=== PATIENT | female | born 1990 | race Caucasian/White ===

== ENCOUNTER 2018-10-05 08:25 | Inpatient (IN) | payer OTHER ==
--- NOTE | 2018-10-05 10:03 | HP ---
COWS - Scale Resting Pulse: 1= [place] 81-100 Sweatin= Chills/Flushing Restless Observation: 1= Difficult to Sit Still Pupil Size: 1= Pupils >than Normal Bone or Joint Aches: 4=Acute Joint/Muscle Pain Runny Nose/ Eye Tearin= Runny Nose/Eyes GI Upset > 30mins: 2= Nausea/Diarrhea Tremor Observation: 2= Slight Tremor Visible Yawning Observation: 0= None Anxiety or Irritability: 2=Irritable/Anxious Goose Flesh Skin: 0=Smooth Skin COWS Score: 16 CIWA Score - Admission Criteria OASAS Guidelines: Admission for Medically Managed Detox: Requires at least one of the followin. CIWA greater than 12 2. Seizures within the past 24 hours 3. Delirium tremens within the past 24 hours 4. Hallucinations within the past 24 hours 5. Acute intervention needed for co occurring medical disorder 6. Acute intervention needed for co occurring psychiatric disorder 7. Severe withdrawal that cannot be handled at a lower level of care (continued vomiting, continued diarrhea, abnormal vital signs) requiring intravenous medication and/or fluids 8. Admission ROS [facility] Allergies/Adverse Reactions: Allergies Allergy/AdvReac Type Severity Reaction Status Date / Time No Known Allergies Allergy Verified 10/05/18 09:55 History of Present Illness: patient here requesting detox from heroin use , reports 2 gr/day IVDU first age of use 6 mo ago , prior to which she was using oxycodone 10 pills x 30 mg /day x 6 years , had rx initially for Lyme dz / DJD x 2 years then started illicit use . IVDU in [place] [facility] , needles from the exchange, denies sharing , rarely re-using , denies abscess, denies OD . Denies si / hi , never at this facility , prior detox July 2018 [facility] , rehab benzo : 5 xanax /day since age 17 , reports anxiety if not using, denies w/d seizures , blackouts . etoh use : 2 x/week 3-4 beers. tobacco : 1 ppd since age 17 cannabis : 1 blunt 2x/month , first age of use 17 other illicits : MDMA . upt neg lmp June 21 ages 9 son w/ maternal GM & 3 y,o dtr w/ bio father SHX : homeless , unemployed PMHx : depression , anxiety , djd , Lyme dz st II PSHx ; denies - Ebola screening Have you traveled outside of the country in the last 21 days: No Have you had contact with anyone from an Ebola affected area: No Have you been sick,other than usual withdrawal symptoms: No Do you have a fever: No - Review of Systems Constitutional: See HPI EENT: reports: See HPI Respiratory: reports: No Symptoms reported Cardiac: reports: No Symptoms Reported GI: reports: See HPI : reports: No Symptoms Reported Musculoskeletal: reports: See HPI Integumentary: reports: Other (track doty) Neuro: reports: No Symptoms reported Endocrine: reports: No Symptoms Reported Psychiatric: reports: Orientated x3, Agitated, Anxious Patient History - Smoking Cessation Smoking history: Current every day smoker Have you smoked in the past 12 months: Yes Aproximately how many cigarettes per day: 20 Hx Chewing Tobacco Use: No Initiated information on smoking cessation: No - Substances Abused Heroin Route: Injection Frequency: Daily Amount used: 2 gms. Age of first use: 27 Date of Last Use: 10/03/18 Xanax or Klonopin Route: Oral Frequency: Daily Amount used: 4 mg./3 mg. Age of first use: 17 Date of Last Use: 10/04/18 Ecstacy Route: Injection Frequency: 1-2 times per week Amount used: $40 Age of first use: 20 Date of Last Use: 10/03/18 Family Disease History - Family Disease History Family History: Denies Admission Physical Exam BHS - Vital Signs Vital Signs: Vital Signs - 24 hr 10/05/18 09:01 Temperature 97.1 F L Pulse Rate 83 Respiratory 17 Rate Blood Pressure 94/61 - Physical General Appearance: Yes: Moderate Distress, Irritable, Anxious HEENTM: Yes: EOMI, Hearing grossly Normal, Normocephalic, Normal Voice, Nasal Congestion, Rhinorrhea Respiratory: Yes: Chest Non-Tender, Lungs Clear, Normal Breath Sounds Neck: Yes: No masses,lesions,Nodules, Trachea in good position Breast: Yes: Breast Exam Deferred Cardiology: Yes: Regular Rhythm, Regular Rate, S1, S2 Abdominal: Yes: Normal Bowel Sounds, Soft Genitourinary: Yes: Within Normal Limits Back: Yes: Normal Inspection Musculoskeletal: Yes: Gait Steady Extremities: Yes: Normal Capillary Refill, Tremors Neurological: Yes: Motor Strength 5/5 Integumentary: Yes: Track Doty ([place] antecubital) - Diagnostic (1) Opiate dependence Current Visit: Yes Status: Acute Qualifiers: Substance use status: in withdrawal Qualified Code(s): F11.23 - Opioid dependence with withdrawal (2) Sedative dependence Current Visit: Yes Status: Acute (3) Nicotine dependence Current Visit: Yes Status: Chronic Qualifiers: Nicotine product type: cigarettes BHS Breath Alcohol Content Breath Alcohol Content: 0 Urine Pregancy Test - Result Urine Test Results: Negative- NO Line Present Urine Drug Screen - Results Drug Screen Negative: No Urine Drug Screen Results: THC-Marijuana, OPI-Opiates, BZO-Benzodiazepines
[2018-10-05] MEDS ORDERED: MAGNESIUM CITRATE 300 ML BOTTLE PO PRN (10:08)
[2018-10-05] MEDS ORDERED: hydrOXYzine PAMOATE 25 MG CAPSULE (FP) PO PRN (10:08)
[2018-10-05] MEDS ORDERED: guaiFENesin/D-METHORPHAN HB 10 ML UNIT-DOSE CUPS PO PRN (10:08)
[2018-10-05] MEDS ORDERED: MENTHOL/PHENOL 1 EACH UD MM PRN (10:08)
[2018-10-05] MEDS ORDERED: MAGNESIUM HYDROX 2400MG/30ML ORAL SUSPENSION 30 ML CUP PO PRN (10:08)
[2018-10-05] MEDS ORDERED: MAG HYDROX/AL HYDROX/SIMETH 30 ML UNIT-DOSE CUP PO PRN (10:08)
[2018-10-05] MEDS ORDERED: P-EPHED 60MG/TRIPROLIDI 2.5MG TABLET PO PRN (10:08)
[2018-10-05] MEDS ORDERED: IBUPROFEN 400 MG TABLET (FP) PO PRN (10:08)
[2018-10-05] MEDS ORDERED: NICOTINE POLACRILEX 2 MG GUM BUC PRN (10:08)
[2018-10-05] MEDS ORDERED: ACETAMINOPHEN 325 MG TABLET (FP) PO PRN (10:08)
[2018-10-05 10:30] VITALS: BMI 18.5
[2018-10-05] MEDS ORDERED: METHADONE HCL 10 MG TABLET (FOR DETOX USE ONLY) PO ONE ×2 (11:00→23:00)
[2018-10-05] MEDS: diazePAM 5 MG TABLET PO PRN (11:14)
[2018-10-05] MEDS: diazePAM 5 MG TABLET PO SCH ×2 (15:04→22:35)
[2018-10-05] MEDS ORDERED: MELATONIN 5 MG TABLETS PO PRN (22:00)
[2018-10-05] MEDS: THIAMINE HCL 100 MG TABLET (FP) PO SCH (22:35)
[2018-10-06] MEDS: diazePAM 5 MG TABLET PO SCH ×3 (05:49→22:18)
[2018-10-06] MEDS ORDERED: METHADONE HCL 10 MG TABLET (FOR DETOX USE ONLY) PO SCH (10:00)
[2018-10-06] MEDS: PRENATAL VITAMINS W/ FOLIC ACID TABLET (FP) PO SCH (10:23)
[2018-10-06] MEDS: PANTOPRAZOLE 20 MG TABLET (FP) PO SCH (10:23)
[2018-10-06 10:28] LABS: HEMATOCRIT 41.6 % (32.4-45.2); HEMOGLOBIN 13.9 GM/dL (10.7-15.3); MCH 30.5 pg (25.7-33.7); MCHC 33.5 g/dl (32.0-36.0); MEAN CELL VOLUME 91.3 fl (80-96); MEAN PLT VOLUME 8.7 fl (7.5-11.1); PLATELET COUNT 346 K/MM3 (134-434); RBC 4.56 M/mm3 (3.60-5.2); RDW 15.3 % (11.6-15.6); WHITE BLOOD COUNT 7.9 K/mm3 (4.0-10.0)
[2018-10-06 10:41] LABS: ALBUMIN 4.1 g/dl (3.4-5.0); ALK PHOS 92 U/L (45-117); ANION GAP 8 MMOL/L (8-16); BILIRUBIN,TOTAL 0.4 mg/dL (0.2-1); BLOOD UREA NITROGEN 8 mg/dL (7-18); CALCIUM 9.3 mg/dL (8.5-10.1); CHLORIDE 106 mmol/L (98-107); CO2 26 mmol/L (21-32); CREATININE 0.6 mg/dL (0.55-1.3); GLUCOSE,RANDOM 103 mg/dL (74-106); POTASSIUM 4.2 mmol/L (3.5-5.1); SGOT/AST 16 U/L (15-37); SGPT/ALT 19 U/L (13-61); SODIUM 140 mmol/L (136-145); TOT PROT 7.7 g/dl (6.4-8.2)
--- NOTE | 2018-10-06 10:49 | CONSULT ---
[facility] Psychiatric Consult - Data Date of interview: 10/06/18 Admission source: [facility] Identifying data: This is 28 years old female, single mother of two, homeless, unemployed, with no financial support, withy no psychiatric hospitalization history, with multiple medical problems is here reportsting Opioids, Xanax, Nicotine depemdece, withdrawal symptoms and seeking for detox. Substance Abuse History: - Smoking Cessation. Smoking history: Current every day smoker. Have you smoked in the past 12 months: Yes. Aproximately how many cigarettes per day: 20. Hx Chewing Tobacco Use: No. Initiated information on smoking cessation: No. - Substances Abused. Heroin. Route: Injection. Frequency: Daily. Amount used: 2 gms. Age of first use: 27. Date of Last Use : 10/03/18. Xanax or Klonopin. Route: Oral. Frequency: Daily. Amount used : 4 mg./3 mg. Age of first use: 17. Date of Last Use: 10/04/18. Ecstacy. Route: Injection. Frequency: 1-2 times per week. Amount used: $40. Age of first use: 20. Date of Last Use: 10/03/18 Medical History: Lyme disease stage 2 history, degenerative disk C4-7, L1-3 history, Nytral valve orolapse history, Rheumathoid Arthritis history Psychiatric History: Patient reports history of depression and anxiety, insomnia , reports no psychiatric hospitalization history, denies suicidal, homicidal ideation. Reports takimg prior to admission: Topamax 25mg po bid. Wellbutrin xl 300mg poqd. [id number] po qid. Seroquel 200mg po qhs. Lexapro 40mg poqd Physical/Sexual Abuse/Trauma History: Denies Additional Comment: Topamax 25mg po bid. Wellbutrin xl 300mg poqd. [id number] po qid. Seroquel 200mg po qhs. Lexapro 40mg poqd Mental Status Exam - Mental Status Exam Alert and Oriented to: Place, Person Cognitive Function: Fair Patient Appearance: Unkempt Mood: Apprehensive Affect: Mood Congruent Patient Behavior: Appropriate, Cooperative Speech Pattern: Appropriate Voice Loudness: Normal Thought Process: Goal Oriented Thought Disorder: Not Present Hallucinations: Denies Suicidal Ideation: Denies Homicidal Ideation: Denies Insight/Judgement: Fair Sleep: Difficulty falling asleep Appetite: Weight loss Muscle strength/Tone: Normal Gait/Station: Normal Additional Comments: Topamax 25mg po bid. Wellbutrin xl 300mg poqd. [id number] po qid. Seroquel 200mg po qhs. Lexapro 40mg poqd Psychiatric Findings - Problem List ([place] 1, 2,3) (1) Drug-induced mood disorder Current Visit: Yes Status: Acute (2) Opiate dependence Current Visit: Yes Status: Acute Qualifiers: Substance use status: in withdrawal Qualified Code(s): F11.23 - Opioid dependence with withdrawal (3) Sedative dependence Current Visit: Yes Status: Acute (4) Nicotine dependence Current Visit: Yes Status: Chronic Qualifiers: Nicotine product type: cigarettes (5) Degenerative arthritis Current Visit: Yes Status: Acute (6) Degenerative disk disease Current Visit: Yes Status: Acute (7) Lyme disease Current Visit: Yes Status: Acute (8) Mitral valve prolapse Current Visit: Yes Status: Acute (9) Rheumatoid arthritis Current Visit: Yes Status: Acute - Initial Treatment Plan Initial Treatment Plan: Topamax 25mg po bid. Wellbutrin xl 300mg poqd. [id number] po qid. Seroquel 200mg po qhs. Lexapro 40mg poqd
[2018-10-06] MEDS: ESCITALOPRAM OXALATE 20 MG TABLET (FP) PO SCH (12:32)
[2018-10-06] MEDS: NICOTINE 21 MG/24 HOURS TOPICAL PATCH TD SCH (12:33)
--- NOTE | 2018-10-06 12:34 | PN ---
S COWS - Scale Resting Pulse: 0= [place] 80 or Below Sweatin= Chills/Flushing Restless Observation: 1= Difficult to Sit Still Pupil Size: 1= Pupils >than Normal Bone or Joint Aches: 2= Severe Diffuse Aches Runny Nose/ Eye Tearin= Nasal Congestion GI Upset > 30mins: 1= Stomach Cramp Tremor Observation of Outstretched Hands: 2= Slight Tremor Visible Yawning Observation: 1= 1-2x During Session Anxiety or Irritability: 2=Irritable/Anxious Goose Flesh Skin: 0=Smooth Skin COWS Score: 12 BHS Progress Note (SOAP) Subjective: body aches joints pain tremor sweating Objective: 10/06/18 12:34 Vital Signs Temperature 97.1 F L 10/06/18 09:17 Pulse Rate 68 10/06/18 09:17 Respiratory Rate 18 10/06/18 09:17 Blood Pressure 90/58 L 10/06/18 09:17 O2 Sat by Pulse Oximetry (%) Laboratory Last Values WBC 7.9 K/mm3 (4.0-10.0) 10/06/18 06:00 RBC 4.56 M/mm3 (3.60-5.2) 10/06/18 06:00 Hgb 13.9 GM/dL (10.7-15.3) 10/06/18 06:00 Hct 41.6 % (32.4-45.2) 10/06/18 06:00 MCV 91.3 fl (80-96) 10/06/18 06:00 MCH 30.5 pg (25.7-33.7) 10/06/18 06:00 MCHC 33.5 g/dl (32.0-36.0) 10/06/18 06:00 RDW 15.3 % (11.6-15.6) 10/06/18 06:00 Plt Count 346 K/MM3 (134-434) 10/06/18 06:00 MPV 8.7 fl (7.5-11.1) 10/06/18 06:00 Sodium 140 mmol/L (136-145) 10/06/18 06:00 Potassium 4.2 mmol/L (3.5-5.1) 10/06/18 06:00 Chloride 106 mmol/L (98-107) 10/06/18 06:00 Carbon Dioxide 26 mmol/L (21-32) 10/06/18 06:00 Anion Gap 8 MMOL/L (8-16) 10/06/18 06:00 BUN 8 mg/dL (7-18) 10/06/18 06:00 Creatinine 0.6 mg/dL (0.55-1.3) 10/06/18 06:00 Creat Clearance w eGFR > 60 (>60) 10/06/18 06:00 Random Glucose 103 mg/dL (74-106) 10/06/18 06:00 Calcium 9.3 mg/dL (8.5-10.1) 10/06/18 06:00 Total Bilirubin 0.4 mg/dL (0.2-1) 10/06/18 06:00 AST 16 U/L (15-37) 10/06/18 06:00 ALT 19 U/L (13-61) 10/06/18 06:00 Alkaline Phosphatase 92 U/L (45-117) 10/06/18 06:00 Total Protein 7.7 g/dl (6.4-8.2) 10/06/18 06:00 Albumin 4.1 g/dl (3.4-5.0) 10/06/18 06:00 lab noted Assessment: 10/06/18 12:34 withdrawal sx Plan: continue detox
[2018-10-06] MEDS: GABAPENTIN 400 MG CAPSULE (FP) PO SCH ×3 (14:00→22:18)
[2018-10-06] MEDS: TOPIRAMATE 25 MG TABLET (FP) PO SCH ×2 (14:00→22:19)
[2018-10-06] MEDS: diazePAM 5 MG TABLET PO PRN (17:49)
[2018-10-06] MEDS ORDERED: QUEtiapine FUMARATE 200 MG TABLET PO SCH (22:00)
[2018-10-06] MEDS: THIAMINE HCL 100 MG TABLET (FP) PO SCH (22:18)
--- NOTE | 2018-10-06 23:34 | PN ---
S Progress Note (SOAP) Subjective: C/o sharp pain of '10' in (R) wrist radiating up to mid arm when moves wrist. States recent injection drug use at wrist site. States pain decreases when not moving. Requesting a warm compress. States does not like ensure and requesting it be discontinued. Objective: (R) wrist w/ tenderness at radial area w/ slight swelling. No increased warmth, erythema or induration at site. Radial pulse (+). Cap refill < 3 sec. No streaking of forearm present. Old and new injection sites noted on wrist and antecubital areas. (+) ROM wrist w/ increased tenderness. Vital Signs 10/06/18 10/06/18 17:53 21:32 Temperature 97.9 F 97.6 F Pulse Rate 76 64 Respiratory 18 18 Rate Blood Pressure 98/66 92/52 L Assessment: Wrist pain. Plan: Alternate warm and cold compresses to (R) wrist area. F/u for evaluation of wrist, as needed. Encourage to take ibuprofen for pain, as needed. Discontinue ensure. Continue detox.
[2018-10-07] MEDS: PANTOPRAZOLE 20 MG TABLET (FP) PO SCH (06:28)
[2018-10-07 08:16] VITALS: PULSE 69
[2018-10-07 09:25] VITALS: BP 92/64; TEMP 96.2
[2018-10-07] MEDS ORDERED: diazePAM 5 MG TABLET PO SCH (10:00)
[2018-10-07] MEDS ORDERED: METHADONE HCL 5 MG TABLET (FOR DETOX USE ONLY) PO SCH (10:00)
[2018-10-07] MEDS: ESCITALOPRAM OXALATE 20 MG TABLET (FP) PO SCH (10:08)
[2018-10-07] MEDS: TOPIRAMATE 25 MG TABLET (FP) PO SCH (10:08)
[2018-10-07] MEDS: NICOTINE 21 MG/24 HOURS TOPICAL PATCH TD SCH (10:10)
[2018-10-07] MEDS: GABAPENTIN 400 MG CAPSULE (FP) PO SCH (11:20)
[2018-10-07] MEDS: PRENATAL VITAMINS W/ FOLIC ACID TABLET (FP) PO SCH (11:21)
--- NOTE | 2018-10-07 12:02 | PN ---
BHS COWS - Scale Resting Pulse: 0= [place] 80 or Below Sweatin= Chills/Flushing Restless Observation: 1= Difficult to Sit Still Pupil Size: 1= Pupils >than Normal Bone or Joint Aches: 1= Mild Discomfort Runny Nose/ Eye Tearin= Nasal Congestion GI Upset > 30mins: 1= Stomach Cramp Tremor Observation of Outstretched Hands: 1= Tremor [place], Not Seen Yawning Observation: 1= 1-2x During Session Anxiety or Irritability: 1=Feels Anxious/Irritable Goose Flesh Skin: 0=Smooth Skin COWS Score: 9 BHS Progress Note (SOAP) Subjective: denies wrist pain but general body aches with back pain Objective: 10/07/18 12:03 Vital Signs Temperature 96.2 F L 10/07/18 09:24 Pulse Rate 69 10/07/18 09:24 Respiratory Rate 16 10/07/18 09:24 Blood Pressure 92/64 10/07/18 09:24 O2 Sat by Pulse Oximetry (%) Laboratory Last Values WBC 7.9 K/mm3 (4.0-10.0) 10/06/18 06:00 RBC 4.56 M/mm3 (3.60-5.2) 10/06/18 06:00 Hgb 13.9 GM/dL (10.7-15.3) 10/06/18 06:00 Hct 41.6 % (32.4-45.2) 10/06/18 06:00 MCV 91.3 fl (80-96) 10/06/18 06:00 MCH 30.5 pg (25.7-33.7) 10/06/18 06:00 MCHC 33.5 g/dl (32.0-36.0) 10/06/18 06:00 RDW 15.3 % (11.6-15.6) 10/06/18 06:00 Plt Count 346 K/MM3 (134-434) 10/06/18 06:00 MPV 8.7 fl (7.5-11.1) 10/06/18 06:00 Sodium 140 mmol/L (136-145) 10/06/18 06:00 Potassium 4.2 mmol/L (3.5-5.1) 10/06/18 06:00 Chloride 106 mmol/L (98-107) 10/06/18 06:00 Carbon Dioxide 26 mmol/L (21-32) 10/06/18 06:00 Anion Gap 8 MMOL/L (8-16) 10/06/18 06:00 BUN 8 mg/dL (7-18) 10/06/18 06:00 Creatinine 0.6 mg/dL (0.55-1.3) 10/06/18 06:00 Creat Clearance w eGFR > 60 (>60) 10/06/18 06:00 Random Glucose 103 mg/dL (74-106) 10/06/18 06:00 Calcium 9.3 mg/dL (8.5-10.1) 10/06/18 06:00 Total Bilirubin 0.4 mg/dL (0.2-1) 10/06/18 06:00 AST 16 U/L (15-37) 10/06/18 06:00 ALT 19 U/L (13-61) 10/06/18 06:00 Alkaline Phosphatase 92 U/L (45-117) 10/06/18 06:00 Total Protein 7.7 g/dl (6.4-8.2) 10/06/18 06:00 Albumin 4.1 g/dl (3.4-5.0) 10/06/18 06:00 RPR Titer Nonreactive (NONREACTIVE) 10/06/18 06:00 lab noted Assessment: 10/07/18 12:04 withdrawal sx Plan: continue detox
--- NOTE | 2018-10-07 14:10 | DS ---
[facility] Detox Discharge Summary Admission Date: 10/05/18 Discharge Date: 10/07/18 - History Present History: Opioid Dependence Additional Comments: 28 years old female admitted on 10/05/18 for opiate withdrawal stabilization insists to leave the detox unit that she is not ready for opiate free patient is alert no acute distress denies suicidal ideation aftercare [facility] Pertinent Past History: patient agrees to consider return to [facility] for revelation admission - Physical Exam Results Vital Signs: Vital Signs Temperature 96.2 F L 10/07/18 09:24 Pulse Rate 69 10/07/18 09:24 Respiratory Rate 16 10/07/18 09:24 Blood Pressure 92/64 10/07/18 09:24 O2 Sat by Pulse Oximetry (%) Pertinent Admission Physical Exam Findings: opiate withdrawal sx Laboratory Last Values WBC 7.9 K/mm3 (4.0-10.0) 10/06/18 06:00 RBC 4.56 M/mm3 (3.60-5.2) 10/06/18 06:00 Hgb 13.9 GM/dL (10.7-15.3) 10/06/18 06:00 Hct 41.6 % (32.4-45.2) 10/06/18 06:00 MCV 91.3 fl (80-96) 10/06/18 06:00 MCH 30.5 pg (25.7-33.7) 10/06/18 06:00 MCHC 33.5 g/dl (32.0-36.0) 10/06/18 06:00 RDW 15.3 % (11.6-15.6) 10/06/18 06:00 Plt Count 346 K/MM3 (134-434) 10/06/18 06:00 MPV 8.7 fl (7.5-11.1) 10/06/18 06:00 Sodium 140 mmol/L (136-145) 10/06/18 06:00 Potassium 4.2 mmol/L (3.5-5.1) 10/06/18 06:00 Chloride 106 mmol/L (98-107) 10/06/18 06:00 Carbon Dioxide 26 mmol/L (21-32) 10/06/18 06:00 Anion Gap 8 MMOL/L (8-16) 10/06/18 06:00 BUN 8 mg/dL (7-18) 10/06/18 06:00 Creatinine 0.6 mg/dL (0.55-1.3) 10/06/18 06:00 Creat Clearance w eGFR > 60 (>60) 10/06/18 06:00 Random Glucose 103 mg/dL (74-106) 10/06/18 06:00 Calcium 9.3 mg/dL (8.5-10.1) 10/06/18 06:00 Total Bilirubin 0.4 mg/dL (0.2-1) 10/06/18 06:00 AST 16 U/L (15-37) 10/06/18 06:00 ALT 19 U/L (13-61) 10/06/18 06:00 Alkaline Phosphatase 92 U/L (45-117) 10/06/18 06:00 Total Protein 7.7 g/dl (6.4-8.2) 10/06/18 06:00 Albumin 4.1 g/dl (3.4-5.0) 10/06/18 06:00 RPR Titer Nonreactive (NONREACTIVE) 10/06/18 06:00 lab noted - Treatment Hospital Course: Detox Protocol Followed, Responded well Patient has Accepted a Rehab Referral to: [facility] - Medication Discharge Medications: Ambulatory Orders Bupropion HCl [Wellbutrin Xl -] 300 mg PO DAILY 10/05/18 Escitalopram Oxalate [Lexapro -] 40 mg PO DAILY 10/05/18 Gabapentin [Neurontin -] 400 mg PO QID 10/05/18 Quetiapine Fumarate [Seroquel -] 200 mg PO HS 10/05/18 Topiramate [Topamax] 25 mg PO BID 10/05/18 - Diagnosis (1) Drug-induced mood disorder Status: Suspected (2) Opiate dependence Status: Acute Qualifiers: Substance use status: in withdrawal Qualified Code(s): F11.23 - Opioid dependence with withdrawal (3) Nicotine dependence Status: Acute Qualifiers: Nicotine product type: cigarettes Substance use status: in withdrawal Qualified Code(s): F17.213 - Nicotine dependence, cigarettes, with withdrawal - AMA Did Patient Leave Against Medical Advice: No
--- NOTE | 2018-10-07 14:14 | DS ---
[facility] Detox Discharge Summary Admission Date: 10/05/18 - Physical Exam Results Vital Signs: Vital Signs Temperature 96.2 F L 10/07/18 09:24 Pulse Rate 69 10/07/18 09:24 Respiratory Rate 16 10/07/18 09:24 Blood Pressure 92/64 10/07/18 09:24 O2 Sat by Pulse Oximetry (%) - Medication Discharge Medications: Ambulatory Orders Bupropion HCl [Wellbutrin Xl -] 300 mg PO DAILY 10/05/18 Escitalopram Oxalate [Lexapro -] 40 mg PO DAILY 10/05/18 Gabapentin [Neurontin -] 400 mg PO QID 10/05/18 Quetiapine Fumarate [Seroquel -] 200 mg PO HS 10/05/18 Topiramate [Topamax] 25 mg PO BID 10/05/18 - Diagnosis (1) Drug-induced mood disorder Status: Suspected (2) Opiate dependence Status: Acute Qualifiers: Substance use status: in withdrawal Qualified Code(s): F11.23 - Opioid dependence with withdrawal (3) Nicotine dependence Status: Acute Qualifiers: Nicotine product type: cigarettes Substance use status: in withdrawal Qualified Code(s): F17.213 - Nicotine dependence, cigarettes, with withdrawal - AMA Did Patient Leave Against Medical Advice: Yes
[2018-10-08] MEDS ORDERED: METHADONE HCL 10 MG TABLET (FOR DETOX USE ONLY) PO SCH (10:00)
[2018-10-09] MEDS ORDERED: METHADONE HCL 5 MG TABLET (FOR DETOX USE ONLY) PO SCH (06:00)
[2018-10-09] MEDS ORDERED: diazePAM 5 MG TABLET PO SCH (10:00)
== END 2018-10-07 13:40 | disposition left against medical advice (07) | DRG 770 ==
LOC: YASAS 08:25 → Y3N 10:42
PROVIDERS: ADMIT Neuromusculoskeletal Medicine & OMM; ATTEND Neuromusculoskeletal Medicine & OMM
PROC: HZ2ZZZZ Detoxification Services for Substance Abuse Treatment (ICD-10-PCS; principal; 2018-10-05)
DX: F11.23 Opioid dependence with withdrawal (principal); F13.20 Sedative, hypnotic or anxiolytic dependence, uncomplicated; F17.213 Nicotine dependence, cigarettes, with withdrawal; F19.24 Other psychoactive substance dependence with psychoactive substance-induced mood disorder; F41.8 Other specified anxiety disorders; F32.9 Major depressive disorder, single episode, unspecified; M06.9 Rheumatoid arthritis, unspecified
CPT/HCPCS: 36415; 80053; 85027; 86593